=== PATIENT | male | born 1985 | race African-American/Black ===

== ENCOUNTER 2016-07-01 20:43 | Emergency (ER) | payer SELFPAY ==
[~2016-07-01] VITALS: Ht 180.3 cm; Wt 75.0 kg
[2016-07-01 21:49] VITALS: BP 109/75
== END 2016-07-01 23:35 | disposition home or self-care (01) ==
LOC: ER 20:44
DX: G24.9 Dystonia, unspecified (principal)
CPT/HCPCS: 99283